=== PATIENT | female | born 1970 | race Caucasian/White ===

== ENCOUNTER 2023-03-19 15:26 | Emergency (ER) | payer OTHER ==
[~2023-03-19] VITALS: Ht 144.8 cm; Wt 59.0 kg
[2023-03-19 15:26] VITALS: BP_SYST 107; PULSE 86; RESP 18; TEMP 98.9; O2SAT 99
[2023-03-19] MEDS ORDERED: KETOROLAC TROMETHAMINE 30 MG VIAL IM ONE (16:45)
[2023-03-19] MEDS ORDERED: ACETAMINOPHEN 500 MG TABLET PO ONE (18:00)
[2023-03-19] MEDS ORDERED: LIDOCAINE PATCH 5% 1 EA TP ONE (18:00)
[2023-03-19] MEDS ORDERED: ACET-2634 PO (19:27)
[2023-03-19] MEDS ORDERED: IBUP-1970 PO (19:27)
[2023-03-19] MEDS ORDERED: CYCL10TA24 PO (19:27)
[2023-03-19 19:44] VITALS: BP_SYST 110; PULSE 83; RESP 18; TEMP 98.7; O2SAT 98
== END 2023-03-19 19:44 | disposition home or self-care (01) ==
LOC: SED 15:26
DX: S16.1XXA Strain of muscle, fascia and tendon at neck level, initial encounter (principal); S39.012A Strain of muscle, fascia and tendon of lower back, initial encounter; E11.9 Type 2 diabetes mellitus without complications; Z79.899 Other long term (current) drug therapy; V49.50XA Passenger injured in collision with unspecified motor vehicles in traffic accident, initial encounter; Y93.89 Activity, other specified; Y92.89 Other specified places as the place of occurrence of the external cause; Y99.8 Other external cause status
CPT/HCPCS: 99285; 71250; 72131; 76376; 96372; J1885